=== PATIENT | female | born 1990 | race Caucasian/White ===

== ENCOUNTER 2021-12-24 12:09 | Inpatient (IN) | payer OTHER ==
[~2021-12-24] VITALS: Ht 170.2 cm; Wt 102.1 kg
--- NOTE | 2021-12-27 18:01 | PR ---
[facility] [facility] [address] [facility] [place], [place] [address] Signed Progress Notes IP Datetime Report Generated by CPN: 12/27/2021 18:01 PROGRESS NOTES: [id number] Impression: Reassuring Heart Rate Procedures: Sterile Vag Exam Plan: Continue Present Management VITAL SIGNS: [id number] Vital Signs: Reviewed; Within Normal Limits EXAM: [id number] Dilatation: 1.5 Effacement: 50 Station: -2 Contractions: 2-4 min mild MEMBRANES: [id number] Comments: Pt seen and evaluated. Doing well. Cat 2 tracing. Acceleration w/ scalp stimulation. Will continue w/ maternal repositioning and monitor closely. Consider internals at next check FETUS A: [id number] FHR Baseline: 140 Variability: Moderate 6-25bpm Accelerations: 15X15 Decelerations: None FHR Category: Category I Comments on Fetus A: No evidence of metabolic acidosis FETUS B: [id number] Signing Physician: Americo Patel DO Copies: ~ *Electronically Signed* 12/27/21 180 AMERICO PATEL DO PATIENT NAME: RUDY STOVALL PROGRESS NOTE DATE OF : 91 PHYSICIAN: AMERICO PATEL DO RPT #: [id number] REPORT IS CONFIDENTIAL AND NOT TO BE RELEASED WITHOUT AUTHORIZATION
--- NOTE | 2021-12-28 05:39 | PR ---
[facility] [address] [place], [place] [address] Signed Progress Notes IP Datetime Report Generated by CPN: 12/28/2021 05:39 PROGRESS NOTES: [id number] Impression: Reassuring Heart Rate Procedures: Sterile Vag Exam Plan: Augmentation; Antibiotic Therapy Informed Consent Obtain: Vaginal Delivery; Induction of Labor VITAL SIGNS: [id number] Vital Signs: Reviewed; Within Normal Limits EXAM: [id number] Dilatation: 2.0 Effacement: 60 Station: -3 Contractions: 2-4 min mild MEMBRANES: [id number] Comments: Pt seen and examined. S/P total of 6 doses of cytotec w/ minimal interval cervical change since last exam. vertex not well applied. Reviewed ca score and recommended trial of low dose of pitocin and amniotomy when vertex better applied. Will start clindamycin now. All questions answered. FETUS A: [id number] FHR Baseline: 140 Variability: Moderate 6-25bpm Accelerations: 15X15 Decelerations: None FHR Category: Category I Comments on Fetus A: No evidence of metabolic acidosis FETUS B: [id number] Signing Physician: Americo Patel DO Copies: ~ *Electronically Signed* 12/28/21 0539 AMERICO PATEL DO PATIENT NAME: RUDY STOVALL PROGRESS NOTE DATE OF : 91 PHYSICIAN: AMERICO PATEL DO RPT #: [id number] REPORT IS CONFIDENTIAL AND NOT TO BE RELEASED WITHOUT AUTHORIZATION
--- NOTE | 2021-12-28 10:40 | PR ---
[facility] [address] [place], [place] [address] Signed Progress Notes IP Datetime Report Generated by CPN: 12/28/2021 10:39 PROGRESS NOTES: [id number] Impression: Reassuring Heart Rate Procedures: Artificial ROM; Intrauterine Pressure Catheter; Scalp Electrode Plan: Continue Present Management Informed Consent Obtain: Vaginal Delivery; Section Delivery VITAL SIGNS: [id number] Vital Signs: Reviewed; Within Normal Limits EXAM: [id number] Dilatation: 1.5 Effacement: 70 Station: -2 Contractions: 2-4 min mild MEMBRANES: [id number] Membranes Status: Ruptured Comments: Pt seen and evaluated. Periods of minimal variability and did not tolerate pitocin well. Discussed options and recommended AROM w/ placement of IUPC and FSE. Pt agrees. Pt became lightheaded and nauseated w/ AROM and hypotension noted w/ resulting deceleration that recovered. Now minimal variability w/ acceleration noted. Reviewed prognosis and recommended continued trial of labor. Pt states that she "is happy with however the baby needs to come out." Will continue trial of labor and discussed indications for if needed. FETUS A: [id number] FHR Baseline: 140 Variability: Moderate 6-25bpm Accelerations: 15X15 Decelerations: None FHR Category: Category I Comments on Fetus A: No evidence of metabolic acidosis FETUS B: [id number] Signing Physician: Americo Patel DO Copies: ~ *Electronically Signed* 12/28/21 1138 AMERICO PATEL DO PATIENT NAME: RUDY STOVALL PROGRESS NOTE DATE OF : 91 PHYSICIAN: AMERICO PATEL DO RPT #: [id number] REPORT IS CONFIDENTIAL AND NOT TO BE RELEASED WITHOUT AUTHORIZATION
--- NOTE | 2021-12-28 14:44 | PR ---
[facility] [address] [place], [place] [address] Signed Progress Notes IP Datetime Report Generated by CPN: 12/28/2021 14:44 PROGRESS NOTES: [id number] Impression: Reassuring Heart Rate Other Impressions: Slow progression of latent labor Procedures: Sterile Vag Exam Plan: Augmentation Informed Consent Obtain: Vaginal Delivery; Section Delivery VITAL SIGNS: [id number] Vital Signs: Reviewed; Within Normal Limits EXAM: [id number] Dilatation: 2.0 Effacement: 80 Station: -2 Contractions: 2-4 min mild MEMBRANES: [id number] Membranes Status: Ruptured Comments: Pt seen and evaluated. Pt frustrated w/ lack of progress, but comfortable w/ epidural. Reviewed slow progression and rare contractions. Reviewed prior attempts to augment w/ pitocin and resulting minimal variability. Pt would like to discuss C/S. Reviewed ACOG guidelines for safely preventing the primary C/S and recommended continuing w/ trial of labor. Discussed restarting pitocin augmentation which patient agrees. Would consider C/S if intolerance to pitocin. Pt understands and agrees. FETUS A: [id number] FHR Baseline: 140 Variability: Moderate 6-25bpm Accelerations: 15X15 Decelerations: None FHR Category: Category I Comments on Fetus A: No evidence of metabolic acidosis FETUS B: [id number] Signing Physician: Americo Patel DO Copies: ~ *Electronically Signed* 12/28/21 7015 AMERICO PATEL DO PATIENT NAME: RUDY STOVALL PROGRESS NOTE DATE OF : 91 PHYSICIAN: AMERICO PATEL DO RPT #: [id number] REPORT IS CONFIDENTIAL AND NOT TO BE RELEASED WITHOUT AUTHORIZATION
--- NOTE | 2021-12-28 17:32 | PR ---
[facility] [address] [place], [place] [address] Signed Progress Notes IP Datetime Report Generated by CPN: 12/28/2021 17:32 PROGRESS NOTES: [id number] Impression: Normal Progression of Labor; Reassuring Heart Rate Other Impressions: Slow progression of latent labor Procedures: Sterile Vag Exam Plan: Continue Present Management Other Plans: Recent rebolus per anesthesia Informed Consent Obtain: Vaginal Delivery VITAL SIGNS: [id number] Vital Signs: Reviewed; Within Normal Limits EXAM: [id number] Dilatation: 2.0 Effacement: 80 Station: -2 Contractions: 2-4 min mild MEMBRANES: [id number] Membranes Status: Ruptured Comments: Pt seen and examined. Doing well. Recent rebolus by anesthesia. One late deceleration noted and resolved w/ repositioning. Pt encouraged by cervical change. Discussed anticipated course of labor. All questions. Continue pitocin augmentation per protocol. FETUS A: [id number] FHR Baseline: 140 Variability: Moderate 6-25bpm Accelerations: 15X15 Decelerations: None FHR Category: Category I Comments on Fetus A: No evidence of metabolic acidosis FETUS B: [id number] Signing Physician: Americo Patel DO Copies: ~ *Electronically Signed* 12/28/21 327 AMERICO PATEL DO PATIENT NAME: RUDY STOVALL PROGRESS NOTE DATE OF : 91 PHYSICIAN: AMERICO PATEL DO RPT #: [id number] REPORT IS CONFIDENTIAL AND NOT TO BE RELEASED WITHOUT AUTHORIZATION
--- NOTE | 2021-12-28 18:42 | PR ---
[facility] [address] [facility] [place], [place] [address] Signed Progress Notes IP Datetime Report Generated by CPN: 12/28/2021 18:42 PROGRESS NOTES: [id number] Impression: Non-reassuring Heart Rate Other Impressions: Slow progression of latent labor Procedures: Sterile Vag Exam Plan: Continue Present Management Other Plans: stop pit Informed Consent Obtain: Vaginal Delivery VITAL SIGNS: [id number] Vital Signs: Reviewed; Within Normal Limits EXAM: [id number] Dilatation: 5.0 Effacement: 85 Station: -2 Contractions: 2-4 min mild MEMBRANES: [id number] Membranes Status: Ruptured Comments: Prolonged decel resolved with multiple position changes and stopping pit. Will continue close observation. FETUS A: [id number] FHR Baseline: 140 Variability: Moderate 6-25bpm Accelerations: 15X15 Decelerations: None FHR Category: Category I Comments on Fetus A: No evidence of metabolic acidosis FETUS B: [id number] Signing Physician: Estella Tirado MD Copies: ~ *Electronically Signed* 12/28/211841 ESTELLA TIRADO MD PATIENT NAME: RUDY STOVALL PROGRESS NOTE DATE OF : 91 PHYSICIAN: ESTELLA TIRADO MD RPT #: [id number] REPORT IS CONFIDENTIAL AND NOT TO BE RELEASED WITHOUT AUTHORIZATION
--- NOTE | 2021-12-28 20:39 | PR ---
[facility] [address] [place], [place] [address] Signed Progress Notes IP Datetime Report Generated by CPN: 12/28/2021 20:39 PROGRESS NOTES: [id number] Impression: Normal Progression of Labor; Reassuring Heart Rate Other Impressions: Slow progression of latent labor Procedures: Sterile Vag Exam Plan: Continue Present Management Other Plans: stop pit Informed Consent Obtain: Vaginal Delivery; Section Delivery VITAL SIGNS: [id number] Vital Signs: Reviewed; Within Normal Limits EXAM: [id number] Dilatation: 5.0 Effacement: 85 Station: -2 Contractions: 2-4 min mild MEMBRANES: [id number] Membranes Status: Ruptured Comments: Pt seen and examined. Doing well. Reports "higher spirits" w/ noted cervical change. Reviewed pitocin resumed after deceleration w/ overall reassuring strip. Discussed anticipated course of labor. Will continue pitocin per protocol. FETUS A: [id number] FHR Baseline: 140 Variability: Moderate 6-25bpm Accelerations: 15X15 Decelerations: None FHR Category: Category I Comments on Fetus A: No evidence of metabolic acidosis FETUS B: [id number] Signing Physician: Americo Patel DO Copies: ~ *Electronically Signed* 12/28/212038 AMERICO PATEL DO PATIENT NAME: RUDY STOVALL PROGRESS NOTE DATE OF : 91 PHYSICIAN: AMERICO PATEL DO RPT #: [id number] REPORT IS CONFIDENTIAL AND NOT TO BE RELEASED WITHOUT AUTHORIZATION
--- NOTE | 2021-12-29 20:35 | PR ---
[facility] [address] [facility] [place], [place] [address] Signed PP Progress Notes Datetime Report Generated by CPN: 12/29/2021 20:35 SUBJECTIVE: [id number] Pain: Within Normal Limits Nausea/Vomiting: Denies Flatus: Yes Vital Signs: [id number] Vital Signs: Reviewed EXAM: Ongoing Cardiovascular: Normal Respiratory: Normal Abdomen/Uterus: Normal Lochia: Not Done Vulva/Perineum: Not Done Breasts: Not Done CVA Tenderness: Normal Extremities: Normal Incision: Not Applicable Progress: Normal Exam Comments: Fundus firm U-2 nontender. IMPRESSION/PLAN/PROCEDURES: [id number] Impression: Normal Progression Plan: Discharge Progress Notes: Pt seen and evaluated. diagnosed w/ imperforat anus w/ vaginal fistula and is being transferred to [facility]. Mother requesting discharge to be with . Doing well. Ambulating, voiding, and tolerating full diet. Pain and lochia minimal. well. No fevers/chills. Reviewed d/c instructions in detail. All questions answered. F/U 2 wks Signing Physician: Americo Patel DO Copies: ~ *Electronically Signed* 12/29/212034 AMERICO PATEL DO PATIENT NAME: RUDY STOVALL PROGRESS NOTE DATE OF : 91 PHYSICIAN: AMERICO PATEL DO RPT #: [id number] REPORT IS CONFIDENTIAL AND NOT TO BE RELEASED WITHOUT AUTHORIZATION
== END 2021-12-29 22:55 | disposition home or self-care (01) | DRG 807 ==
LOC: FBC 12-27 00:11
PROVIDERS: ADMIT Obstetrics & Gynecology; ATTEND Obstetrics & Gynecology
PROC: 10E0XZZ Delivery of Products of Conception, External Approach (ICD-10-PCS; principal; 2021-12-29)
PROC: 0KQM0ZZ Repair Perineum Muscle, Open Approach (ICD-10-PCS; 2021-12-29)
PROC: 10907ZC Drainage of Amniotic Fluid, Therapeutic from Products of Conception, Via Natural or Artificial Opening (ICD-10-PCS; 2021-12-29)
PROC: 0UQMXZZ Repair Vulva, External Approach (ICD-10-PCS; 2021-12-29)
PROC: 00HU33Z Insertion of Infusion Device into Spinal Canal, Percutaneous Approach (ICD-10-PCS; 2021-12-29)
PROC: 3E0R3BZ Introduction of Anesthetic Agent into Spinal Canal, Percutaneous Approach (ICD-10-PCS; 2021-12-29)
PROC: 3E0P7VZ Introduction of Hormone into Female Reproductive, Via Natural or Artificial Opening (ICD-10-PCS; 2021-12-29)
PROC: 10H07YZ Insertion of Other Device into Products of Conception, Via Natural or Artificial Opening (ICD-10-PCS; 2021-12-29)
DX: O48.0 Post-term pregnancy (principal); Z37.0 Single live birth; O99.824 Streptococcus B carrier state complicating childbirth; Z3A.40 40 weeks gestation of pregnancy; O70.1 Second degree perineal laceration during delivery; Z87.891 Personal history of nicotine dependence; Z67.10 Type A blood, Rh positive; I95.9 Hypotension, unspecified; O76 Abnormality in fetal heart rate and rhythm complicating labor and delivery
CPT/HCPCS: 36415; 85027; 86850; 86900; 86901; A9270; J2590; J2795; J3010; J3490

== ENCOUNTER 2023-09-16 11:27 | Emergency (ER) | payer OTHER ==
[~2023-09-16] VITALS: Ht 182.9 cm; Wt 98.1 kg
[2023-09-16] MEDS ORDERED: FLUOXETINE HCL20 MG PO (11:53)
[2023-09-16] MEDS ORDERED: FALMINA1 EACH PO (11:53)
[2023-09-16] MEDS ORDERED: CLEOCIN HCL300 MG PO (12:39)
[2023-09-16 12:45] VITALS: BP 130/88
== END 2023-09-16 12:45 | disposition home or self-care (01) ==
LOC: ED 11:27
DX: L03.115 Cellulitis of right lower limb (principal); Z88.2 Allergy status to sulfonamides; Z88.8 Allergy status to other drugs, medicaments and biological substances; Z79.899 Other long term (current) drug therapy; Z79.890 Hormone replacement therapy; Z79.3 Long term (current) use of hormonal contraceptives
CPT/HCPCS: 99282